=== PATIENT | female | born 1975 ===

== ENCOUNTER 2020-04-13 06:00 | Day surgery (SDC) | payer OTHER ==
[~2020-04-13 06:00] MED LIST: PROMETRIUM200 MG PO
== END 2020-04-13 11:20 | disposition home or self-care (01) ==
LOC: CIR.AMB 06:00 → ADM 09:15 → CIR.AMB 09:15
PROVIDERS: ATTEND Orthopaedic Surgery
DX: M75.111 Incomplete rotator cuff tear or rupture of right shoulder, not specified as traumatic (principal)